=== PATIENT | female | born 1945 | race Caucasian/White ===

== ENCOUNTER → 2020-12-02 14:40 | Outpatient (CLI) | payer MEDICARE, SELFPAY ==
--- NOTE | 2020-12-02 14:42 | US_ITS ---
STUDY: ULTRASOUND BREAST - LEFT REASON FOR EXAM: Female, 75 years old. Abnormal mammogram. TECHNIQUE: Axial and longitudinal images of the LEFT breast were performed with a high resolution ultrasound transducer. # OF IMAGES: 23 COMPARISON: Comparison is made with prior mammogram dated 12/02/2020. FINDINGS: LEFT Breast: The nodular densities in the left axillary region corresponding to benign appearing lymph nodes. The largest measures 9 mm x 8 mm x 5 mm. US/Breast Limited Unilateral IMPRESSION: 3 subcentimeter lymph nodes are seen in the left breast as described. ASSESSMENT CATEGORY: BIRADS Category 2: Benign. A letter regarding these results will be sent to the patient by the facility within 30 days. Electronically Signed: Bob Fenton MD at 8:27 EDT , Service support ,
--- NOTE | 2020-12-02 14:42 | BI_ITS ---
MAMMOGRAPHY - UNILATERAL DIAGNOSTIC: LEFT BREAST REASON FOR EXAM: Female, 75 years old. Abnormal screening mammogram. PERTINENT HISTORY: Non-contributory. Patient received Covid vaccine in the left arm one month ago. TECHNIQUE: Digital unilateral breast camila (3D mammographic acquisition) in the CC and MLO projections. 2-D mediolateral oblique (MLO) and craniocaudad (CC) views of both breasts were obtained. CAD: Full Field Digital Mammography with Computer Added Detection was performed. COMPARISON: Comparison is made with prior outside examination dated 10/19/2020. FINDINGS: Breast Composition: The breasts are almost entirely fatty. There are no dominant masses or suspicious calcifications. Small rounded nodular density is seen in the axillary region of the left breast. These most likely represent lymph nodes. Correlation with ultrasound is recommended. No other significant abnormalities are identified. There has been no significant change since the prior study. BI/DIAG MAMM W/CAD, UNILAT IMPRESSION: Left axillary nodules most likely representing lymph nodes. Correlation with ultrasound is recommended. ASSESSMENT CATEGORY: BIRADS Category 0: Incomplete. Need additional imaging evaluation. A letter regarding these results will be sent to the patient by the facility within 30 days. Approximately 10% of breast cancers are not detected by mammography. A normal mammogram should not delay biopsy of a clinically suspicious abnormality. Electronically Signed: Bob Fenton MD at 15:28 EDT , Service support ,
== END ==
PROVIDERS: PCP Registered Nurse; Referring Provider Registered Nurse; Visit Provider Registered Nurse
DX: R92.8 Other abnormal and inconclusive findings on diagnostic imaging of breast (principal)
CPT/HCPCS: 76642; 77061; 77065; G0279

== ENCOUNTER 2021-01-17 16:41 | Outpatient (RCR) | payer MEDICARE, SELFPAY ==
[2021-01-12 08:20] VITALS: BMI 33.3
[2021-01-17 17:26] LABS: Prealbumin 10.7 mg/dL (20.0-40.0)
== END 2021-01-17 18:00 | disposition home or self-care (01) ==
LOC: HHLAB 16:41
PROVIDERS: PCP Registered Nurse; Visit Provider Nurse Practitioner
DX: E46 Unspecified protein-calorie malnutrition (principal)
CPT/HCPCS: 84134

== ENCOUNTER 2021-01-18 17:15 | Outpatient (RCR) | payer MEDICARE, SELFPAY ==
[2021-01-12 08:20] VITALS: BMI 33.3
[2021-01-18 17:29] LABS: Absolute Lymphocyte Count 2.17 X10^3/uL (0.83-4.51); Absolute Neutrophil Count 5.8 X10^3/uL (2.0-7.7); Basophil# 0.06 X10^3/uL; Basophil% 0.7 % (0-1); Eosinophil# 0.14 X10^3/uL; Eosinophils% 1.6 % (0-5); Hematocrit 29.1 % (37-47); Hemoglobin 9.6 g/dL (12.0-15.0); Lymphocyte # 2.17 X10^3/ul (0.83-4.51); Mean Platelet Vol. 8.6 fl (6.2-12.0); Monocyte% 8.9 % (0-10); NRBC Flagged by Analyzer 0 % (0-5); Neutrophil # 5.84 X10^3/uL (2.7-7.7); Neutrophil % 64.6 % (47-70); Platelet Count 288 K/mm3 (150-450); RBC Distribution Width CV 13.4 % (11.6-14.6); RBC Distribution Width SD 48.9 fl (35.1-43.9); Red Blood Count 2.91 M/mm3 (4.2-5.4)
== END 2021-01-18 18:00 | disposition home or self-care (01) ==
LOC: HHLAB 17:15
PROVIDERS: Visit Provider Nurse Practitioner
DX: R63.4 Abnormal weight loss (principal)
CPT/HCPCS: 85025

== ENCOUNTER 2021-02-02 09:00 | Outpatient (RCR) | payer MEDICARE, SELFPAY ==
[2021-01-12 08:20] VITALS: BP 139/74; PULSE 64; RESP 18; TEMP 36.2; BMI 33.3
--- NOTE | 2021-01-12 11:46 | HP.PCM_ITS ---
History of Present Illness Date of Service: 01/12/21 Chief Complaint: 2 degree ruiz to the abd R and L UPPER LEG History of Wound: Dec 31 2020 dumped 4 C or hot gravy from a crockpot that had been cooking for 8 hrs She went to the ED at [place] and has been using triple antibiotics on it daily .She is allergic to soap and is only using Cetaphil soap. She saw her family DR he wanted to send her to the burn center at [facility] and she refused because of needing a ride . Her friend can bring her to [place]. She lives in [place] and has only been there 1 year and is not aware of her surroundings well .She is from [place], she moved here to be near her son. Progress of Wound: The wound today is full of dried mix of slough and scabs. erythematous around the wounds the worse is the R upper thigh that wraps around her lat upper thigh. She has been not wearing a dressing either and its open to air. She denies F,C,N,V at this time. She does c/o no appetite . [facility] Medical History (Updated 01/12/21 @ 12:19 by Yaima Child NP, DOCUMENT MANAGEMENT SPECIALIST-C) Infected wound Malnutrition Second degree ruiz of multiple sites Home Medications albuterol 0.083 mcg INHALATION Q6H PRN 01/12/21 [History Last Taken Unknown] atorvastatin 40 mg PO DAILY 01/12/21 [History Last Taken Unknown] melatonin 3 mg PO QHS PRN 01/12/21 [History Last Taken Unknown] metoprolol tartrate 100 mg PO BID 01/12/21 [History Last Taken Unknown] multivitamin 1 tab PO DAILY 01/12/21 [History Last Taken Unknown] Allergy/AdvReac Type Severity Reaction Status Date / Time soap Allergy Rash Verified 01/12/21 08:49 Social History Smoking Status: Former smoker ROS Constitutional Constitutional: Reports systems reviewed and no addt'l complaints, except as documented Eyes Eyes: Reports systems reviewed and no addt'l complaints, except as documented ENT HEENT: Reports systems reviewed and no addt'l complaints, except as documented Cardiovascular Cardiovascular: Reports systems reviewed and no addt'l complaints, except as documented Respiratory/Chest Respiratory/Chest: Reports systems reviewed and no addt'l complaints, except as documented Gastrointestinal Gastrointestinal: Reports systems reviewed and no addt'l complaints, except as documented Genitourinary Genitourinary: Reports systems reviewed and no addt'l complaints, except as documented Musculoskeletal Musculoskeletal: Reports systems reviewed and no addt'l complaints, except as documented Integumentary Integumentary: Reports systems reviewed and no addt'l complaints, except as docu mented Neurologic Neurologic: Reports systems reviewed and no addt'l complaints, except as documented Psychiatric Psychiatric: Reports systems reviewed and no addt'l complaints, except as documented Endocrine Endocrinology: Reports systems reviewed and no addt'l complaints, except as documented Hematologic/Lymphatic Hematologic/Lymphatic: Reports systems reviewed and no addt'l complaints, except as documented Allergic/Immunologic Allergic/Immunologic: Reports systems reviewed and no addt'l complaints, except as documented Vital Signs Vital Signs Vital Signs: 01/12/21 08:20 Temperature 97.2 F L Temperature Source Temporal Pulse Rate 64 Respiratory Rate 18 Blood Pressure 139/74 H Blood Pressure Mean 95 Blood Pressure Source Monitor Blood Pressure Position Sitting Blood Pressure Location Right Arm Oxygen Delivery Method Room Air Weight Weight: 194 lb Body Mass Index (BMI) 33.3 Physical Exam Const oriented x3 General Appearance: cooperative Exam Limitations: no limitations HEENT normocephalic Head and Scalp: normal to inspection Face and Sinus: normal facial exam Nose: external nose normal General Ear: hearing grossly impaired External Ear: external ears normal Mouth: oral and palatal mucosa normal Eyes PERRL General Eye: normal appearance of both eyes Neck full ROM General: normal visual inspection Resp normal respiratory effort Effort and Inspection: able to speak in complete sentences Auscultation: clear to auscultation bilaterally Cardio regular rate and regular rhythm Palpation: normal PMI Rate: regular rate Rhythm: regular rhythm GI Auscultation: normoactive bowel sounds Palpation: soft and no hepatosplenomegaly external exam normal Back/Spine Cervical Spine: cervical ROM normal Thoracic Spine / Upper Back: normal to inspection Lumbar Spine / Lower Back: normal to inspection Extremity normal to inspection General Extremity: normal exam except as noted Skin Skin Narrative: 2nd degree ruiz to the upper thighs and abd scabbed and dried slough erythema at the edges Neuro oriented x3 Psych Appearance: grossly normal Speech: normal speech Thought Content: normal thought content Judgement: judgement good Debridement Note Debridement Note Post-Debridement Measurements and Additional Note: Post-Debridement Measurements/Treatment FRIDA - Nurse 1 - General Ulcer Assessment Start: 01/12/21 08:17 Freq: Status: Active Protocol: PAM Activity Type Activity Date Activity User E-Sign Co-Sign Detail Recorded Client Recorded Date Recorded By Document 01/12/21 08:20 [facility] [id number] 01/12/21 08:47 [facility] 01/12/21 08:20 - Today's Visit Information Type of service Initial Visit Arrival Mode Cane,Wheelchair Transfer Assistance Manual Transfer Assist (Other) 2 min assist Patient Identification Verified (Name & Yes ) Patient Requires Transmission-Based No Precautions Height and Weight Height 5 ft 4 in Weight 194 lb Weight in Pounds 194.0 lbs Weight Measurement Method Stated by Patient Body Mass Index (BMI) 33.3 BMI Classification Obese BSA - Melchor 1.93 Vital Signs Temperature (97.8 F-99.1 F) 97.2 F L Temperature Source Temporal Pulse Rate (60-100) 64 Pulse Location Monitor Respiratory Rate (12-18) 18 Respiratory rate source Observation Oxygen Delivery Method Room Air Blood Pressure (90/60-120/80) 139/74 H Blood Pressure Mean 95 Source Monitor Position Sitting Blood Pressure Location Right Arm History Since Last Visit- (Skip if this is Patient's initial visit) Left Footwear Regular Shoe Right Footwear Regular Shoe Pain Scale: 0-10 Numeric Is Patient Pain Free? Yes Communication Assessment Preferred language Frisian Chemical Tester Required No Able to Read Yes Able to Write Yes Communication Tools None Right Hearing Abillity Normal Left Hearing Abillity Normal Visual Assistive Devices None Teaching Assessment Preferences Verbal,Written, Audio/Visual, Demonstration Barriers to Learning None Readiness To Learn Excellent Willingness to Engage in Self Management High Activies Readiness to Engage in Self Management High Activities Anxiety Level Calm Cooperation Cooperative Perception Coherent Interest in Health Problem Asks Questions Education Importance Acknowledges Need Does Patient Smoke tobacco or other No substances Smoking Status Former smoker Is Patient Diabetic No Functional Assessment Recent Decline in Ability to Perform Ambulation, Bathing,Lower Body Dressing, Toileting Culture/Moravian/Professor Of Business Cultural/Moravian Needs that may affect No Treatment Plan Teaching: Wound Center Welcome to the Wound Care Center English GALICIA - Nurse 1 - General Ulcer Measurement Start: 01/12/21 08:17 Freq: Status: Active Protocol: Activity Type Activity Date Activity User E-Sign Co-Sign Detail Recorded Client Recorded Date Recorded By Document 01/12/21 08:20 [facility] [id number] 01/12/21 08:47 [facility] 01/12/21 08:20 Wound Center Nurse 1 #5- L MID ABDOMEN BURN -Combined with other wound No -Current Size (cm) - Length 8 -Current Size (cm) - Width 6 -Current Size (cm) - Depth 0.1 -Total Square Cm 48 -Date of Last Picture (Recall this 01/12/21 field) -Photo Taken Yes -Epithelialization None Present -Tunneling No -Undermining/Tunneling No -Circular Undermining No -Exudate Amt Large -Exudate Type Serosanguineous -Wound Margin Distinct, Outline Attached -Granulation Amt Small (1-33%) -Granulation Quality Red -Slough/Fibrin Yes -Necrosis Amt Large (67-100%) -Necrotic Tissue Type Eschar -Texture (Tatiana-wound Skin Appearance) Assessed, Scarring -Moisture (Tatiana-wound Skin Appearance) Assessed -Color (Tatiana-wound Skin Appearance) Assessed, Erythema -Temperature (Tatiana-wound Skin No Abnormality Appearance) (Pt Warm) -Tenderness on Palpation (Tatiana-wound Yes Skin Appearance) -Ulcer Cleansing WATER, ALLERGY TO SOAP -Foul Odor after Cleansing No -Anesthetic Used 4% Lidocaine Solution #4- R LAT ABDOMEN BURN -Combined with other wound No -Current Size (cm) - Length 3.7 -Current Size (cm) - Width 3.2 -Current Size (cm) - Depth 0.1 -Total Square Cm 11.84 -Date of Last Picture (Recall this 01/12/21 field) -Photo Taken No -Epithelialization None Present -Tunneling No -Undermining/Tunneling No -Circular Undermining No -Exudate Amt Large -Exudate Type Serosanguineous -Wound Margin Distinct, Outline Attached -Granulation Amt Small (1-33%) -Granulation Quality Red -Slough/Fibrin Yes -Necrosis Amt Large (67-100%) -Necrotic Tissue Type Eschar -Texture (Tatiana-wound Skin Appearance) Assessed, Scarring -Moisture (Tatiana-wound Skin Appearance) Assessed -Color (Tatiana-wound Skin Appearance) Assessed -Temperature (Tatiana-wound Skin No Abnormality Appearance) (Pt Warm) -Tenderness on Palpation (Tatiana-wound Yes Skin Appearance) -Ulcer Cleansing WATER, ALLERGY TO SOAP -Foul Odor after Cleansing No -Anesthetic Used 4% Lidocaine Solution #3- R LAT THIGH BURN -Combined with other wound No -Current Size (cm) - Length 20 -Current Size (cm) - Width 22 -Current Size (cm) - Depth 0.1 -Total Square Cm 440 -Date of Last Picture (Recall this 01/12/21 field) -Photo Taken Yes -Epithelialization None Present -Tunneling No -Undermining/Tunneling No -Circular Undermining No -Exudate Amt Large -Exudate Type Serosanguineous -Wound Margin Distinct, Outline Attached -Granulation Amt Small (1-33%) -Granulation Quality Red -Slough/Fibrin Yes -Necrosis Amt Large (67-100%) -Necrotic Tissue Type Eschar -Texture (Tatiana-wound Skin Appearance) Assessed, Scarring -Moisture (Tatiana-wound Skin Appearance) Assessed -Color (Tatiana-wound Skin Appearance) Assessed, Erythema -Temperature (Tatiana-wound Skin No Abnormality Appearance) (Pt Warm) -Tenderness on Palpation (Tatiana-wound Yes Skin Appearance) -Ulcer Cleansing WATER- ALLERGY TO SOAP -Foul Odor after Cleansing No -Anesthetic Used 4% Lidocaine Solution #2- R MED THIGH BURN -Combined with other wound No -Current Size (cm) - Length 6 -Current Size (cm) - Width 10.5 -Current Size (cm) - Depth 0.1 -Total Square Cm 63.0 -Date of Last Picture (Recall this 01/12/21 field) -Photo Taken Yes -Epithelialization None Present -Tunneling No -Undermining/Tunneling No -Circular Undermining No -Exudate Amt Large -Exudate Type Serosanguineous -Wound Margin Distinct, Outline Attached -Granulation Amt Small (1-33%) -Granulation Quality Red -Slough/Fibrin Yes -Necrosis Amt Large (67-100%) -Necrotic Tissue Type Eschar -Texture (Tatiana-wound Skin Appearance) Assessed, Scarring -Moisture (Tatiana-wound Skin Appearance) Assessed -Color (Tatiana-wound Skin Appearance) Assessed, Erythema -Temperature (Tatiana-wound Skin No Abnormality Appearance) (Pt Warm) -Tenderness on Palpation (Tatiana-wound Yes Skin Appearance) -Ulcer Cleansing WATER, ALLERGIC TO SOAP -Foul Odor after Cleansing No -Anesthetic Used 4% Lidocaine Solution #1- L MED THIGH BURN -Combined with other wound No -Current Size (cm) - Length 6 -Current Size (cm) - Width 15 -Current Size (cm) - Depth 0.1 -Total Square Cm 90 -Date of Last Picture (Recall this 01/12/21 field) -Photo Taken Yes -Epithelialization None Present -Tunneling No -Undermining/Tunneling No -Circular Undermining No -Exudate Amt Large -Exudate Type Serosanguineous -Wound Margin Distinct, Outline Attached -Granulation Amt Small (1-33%) -Granulation Quality Red -Slough/Fibrin Yes -Necrosis Amt Large (67-100%) -Necrotic Tissue Type Eschar -Texture (Attiana-wound Skin Appearance) Assessed, Scarring -Moisture (Tatiana-wound Skin Appearance) Assessed -Color (Tatiana-wound Skin Appearance) Assessed, Erythema -Temperature (Tatiana-wound Skin No Abnormality Appearance) (Pt Warm) -Tenderness on Palpation (Tatiana-wound Yes Skin Appearance) -Ulcer Cleansing WATER ONLY, ALLERGIC TO SOAP -Foul Odor after Cleansing No -Anesthetic Used 4% Lidocaine Solution WC - Nurse 2 - General Ulcer CM Notes Start: 01/12/21 08:17 Freq: Status: Active Protocol: Activity Type Activity Date Activity User E-Sign Co-Sign Detail Recorded Client Recorded Date Recorded By Document 01/12/21 09:11 MW [id number] 01/12/21 09:43 MW 01/12/21 09:11 Wound Center Nurse 2 #5- L MID ABDOMEN BURN -Time 09:14 -Correct Patient Yes -Correct Side, Site, Position Yes -Correct Procedure Yes -Procedure Performed Yes -Type of Procedure Debridement -Clinical Debridement Subcutaneous -Tissue Removed Subcutaneous -Post Debridement (cm) - Length 3.5 -Post Debridement (cm) - Width 9.0 -Post Debridement (cm) - Depth 0.2 -Total Square (Post) (cm) 31.50 -Area of Debridement (cm) - Length 3.5 -Area of Debridement (cm) - Width 9.0 -Total Square (Area) (cm) 31.50 -Tunneling No -Undermining/Tunneling No -Circular Undermining No -Wound/Ulcer Outcome Not Healed -Ulcer Cleansing Rinsed/ Irrigated with Saline -Foul Odor after Cleansing No -Bioengineered Tissue No -Bleeding Controlled with Pressure -Offloading No -Treatment Response Procedure Tolerated Well -Debridement - Subq, 1st 20sq cm Yes -Debridement, SubQ, ea addt'l 20sq cm 38 or part thereof #4- R LAT ABDOMEN BURN -Time 09:14 -Correct Patient Yes -Correct Side, Site, Position Yes -Correct Procedure Yes -Procedure Performed Yes -Type of Procedure Debridement -Clinical Debridement Subcutaneous -Tissue Removed Subcutaneous -Post Debridement (cm) - Length 4.0 -Post Debridement (cm) - Width 4.0 -Post Debridement (cm) - Depth 0.1 -Total Square (Post) (cm) 16.00 -Area of Debridement (cm) - Length 4.0 -Area of Debridement (cm) - Width 4.0 -Total Square (Area) (cm) 16.00 -Tunneling No -Undermining/Tunneling No -Circular Undermining No -Wound/Ulcer Outcome Not Healed -Ulcer Cleansing Rinsed/ Irrigated with Saline -Foul Odor after Cleansing No -Bioengineered Tissue No -Bleeding Controlled with Pressure -Offloading No -Treatment Response Procedure Tolerated Well -Debridement - Subq, 1st 20sq cm No #3- R LAT THIGH BURN -Time 09:15 -Correct Patient Yes -Correct Side, Site, Position Yes -Correct Procedure Yes -Procedure Performed Yes -Type of Procedure Debridement -Clinical Debridement Subcutaneous -Tissue Removed Subcutaneous -Post Debridement (cm) - Length 23.0 -Post Debridement (cm) - Width 25.0 -Post Debridement (cm) - Depth 0.2 -Total Square (Post) (cm) 575.00 -Area of Debridement (cm) - Length 23.0 -Area of Debridement (cm) - Width 25.0 -Total Square (Area) (cm) 575.00 -Tunneling No -Undermining/Tunneling No -Circular Undermining No -Wound/Ulcer Outcome Not Healed -Ulcer Cleansing Rinsed/ Irrigated with Saline -Foul Odor after Cleansing No -Bioengineered Tissue No -Bleeding Controlled with Pressure -Offloading No -Treatment Response Procedure Tolerated Well -Debridement - Subq, 1st 20sq cm No #2- R MED THIGH BURN -Time 09:15 -Correct Patient Yes -Correct Side, Site, Position Yes -Correct Procedure Yes -Procedure Performed Yes -Type of Procedure Debridement -Clinical Debridement Subcutaneous -Tissue Removed Subcutaneous -Post Debridement (cm) - Length 4.5 -Post Debridement (cm) - Width 11.0 -Post Debridement (cm) - Depth 0.1 -Total Square (Post) (cm) 49.50 -Area of Debridement (cm) - Length 4.5 -Area of Debridement (cm) - Width 11.0 -Total Square (Area) (cm) 49.50 -Tunneling No -Undermining/Tunneling No -Circular Undermining No -Wound/Ulcer Outcome Not Healed -Ulcer Cleansing Rinsed/ Irrigated with Saline -Foul Odor after Cleansing No -Bioengineered Tissue No -Bleeding Controlled with Pressure -Offloading No -Treatment Response Procedure Tolerated Well -Debridement - Subq, 1st 20sq cm No #1- L MED THIGH BURN -Time 09:15 -Correct Patient Yes -Correct Side, Site, Position Yes -Correct Procedure Yes -Procedure Performed Yes -Type of Procedure Debridement -Clinical Debridement Subcutaneous -Tissue Removed Subcutaneous -Post Debridement (cm) - Length 6.0 -Post Debridement (cm) - Width 15.0 -Post Debridement (cm) - Depth 0.1 -Total Square (Post) (cm) 90.00 -Area of Debridement (cm) - Length 6.0 -Area of Debridement (cm) - Width 15.0 -Total Square (Area) (cm) 90.00 -Tunneling No -Undermining/Tunneling No -Circular Undermining No -Wound/Ulcer Outcome Not Healed -Ulcer Cleansing Rinsed/ Irrigated with Saline -Foul Odor after Cleansing No -Bioengineered Tissue No -Bleeding Controlled with Pressure -Offloading No -Treatment Response Procedure Tolerated Well -Debridement - Subq, 1st 20sq cm No -Debridement, SubQ, ea addt'l 20sq cm 4 or part thereof Pain Scale: 0-10 Numeric Is Patient Pain Free? Yes WC - Nurse 3 - General Ulcer D/C NN Start: 01/12/21 08:17 Freq: Status: Active Protocol: Activity Type Activity Date Activity User E-Sign Co-Sign Detail Recorded Client Recorded Date Recorded By Document 01/12/21 09:53 CASSIUS [id number] 01/12/21 09:56 KR Document 01/12/21 10:06 KR [id number] 01/12/21 10:06 KR 01/12/21 01/12/21 09:53 10:06 Wound Care Nurse 3 #5- L MID ABDOMEN BURN -Ulcer Cleansing Rinsed/ Irrigated with Saline -Primary Dressing Applied Aquacel AG 4x4, NonAdherent Contact Layer -Other Dressing ABD -Primary Dressing Covered/Secured with Dry Gauze, Secured with Tape -Aquacel AG 4x4 3 #4- R LAT ABDOMEN BURN -Ulcer Cleansing Rinsed/ Irrigated with Saline -Primary Dressing Applied NonAdherent Contact Layer -Other Dressing ABD -Primary Dressing Covered/Secured with Dry Gauze, Secured with Tape #3- R LAT THIGH BURN -Ulcer Cleansing Rinsed/ Irrigated with Saline -Other Dressing ABD -Primary Dressing Covered/Secured with Dry Gauze, Secured with Tape #2- R MED THIGH BURN -Ulcer Cleansing Rinsed/ Irrigated with Saline -Primary Dressing Applied Aquacel Extra, NonAdherent Contact Layer -Other Dressing ABD -Primary Dressing Covered/Secured with Dry Gauze, Secured with Tape -Aquacel Extra 2 #1- L MED THIGH BURN -Other Dressing ABD -Primary Dressing Covered/Secured with Dry Gauze, Secured with Tape Pain Scale: 0-10 Numeric Is Patient Pain Free? Yes WC - Visit Discharge Ambulatory Status Cane,Wheelchair Transportation Private Auto Wound debrided: Left mid abdominal wound Laterality: Left Type of Debridement: Excisional debridement Anesthesia Used: 5% Lidocaine Gel and Cetacaine Depth: Down to and including healthy tissue and in the subcutaneous layer Percentage of wound debrided: 100 Instrument Used: 7mm curette, #15 blade and Forceps Tissue Removed: Slough Devitalized tissue Severity: Limited To Skin Breakdown Amount of bleeding with debridement: None Bleeding Controlled with: Pressure Patient tolerated procedure: Patient tolerated procedure well Additional Wound Wound debrided: L mid thigh wound Laterality: Left Type of Debridement: Excisional debridement Anesthesia Used: 5% Lidocaine Gel Depth: Down to and including healthy tissue Percentage of wound debrided: 100 Instrument Used: 7mm curette, #15 blade and Forceps Tissue Removed: devitalized tissue and slough Severity: Limited To Skin Breakdown Amount of bleeding with debridement: Mild Bleeding Controlled with: Pressure Patient tolerated procedure: Patient tolerated procedure well Additional Wound Wound debrided: R lat abd burn Laterality: Right Type of Debridement: Excisional debridement Anesthesia Used: 5% Lidocaine Gel Depth: Down to and including healthy tissue Percentage of wound debrided: 100 Instrument Used: 7mm curette, #15 blade and Forceps Tissue Removed: devitalized tissue and slough Severity: Limited To Skin Breakdown Amount of bleeding with debridement: Mild Bleeding Controlled with: Compression and gauze Patient tolerated procedure: Patient tolerated procedure well Additional Wound Wound debrided: Right lat thigh burn Laterality: Right Type of Debridement: Excisional debridement Anesthesia Used: 5% Lidocaine Gel Depth: Down to and including healthy tissue Percentage of wound debrided: 100 Instrument Used: 7mm curette and #15 blade Tissue Removed: devitalized tissue and slough Severity: Limited To Skin Breakdown Amount of bleeding with debridement: Mild Bleeding Controlled with: Compression and gauze Patient tolerated procedure: Patient tolerated procedure well Additional Wound Wound debrided: R medial thigh Laterality: Right Type of Debridement: Excisional debridement Anesthesia Used: 5% Lidocaine Gel Depth: Down to and including healthy tissue Percentage of wound debrided: 100 Instrument Used: 7mm curette Tissue Removed: devialtized tissue and slough Severity: Limited To Skin Breakdown Amount of bleeding with debridement: Mild Bleeding Controlled with: Compression and gauze Patient tolerated procedure: Patient tolerated procedure well Assessment/Plan Assessment/Plan (1) Second degree ruiz of multiple sites: CODE(S): T30.0 - Burn of unspecified body region, unspecified degree PLAN: wash the wounds with Hibiclens daily and or every other day apply Aquacel Xtra with silver to the wounds cover with adaptic and gauze dressings then mesh covering to hold in place (2) Infected wound: CODE(S): T14.8XXA - Other injury of unspecified body region, initial encounter; L08.9 - Local infection of the skin and subcutaneous tissue, unspecified PLAN: obtained aerobic and anaerobic cultures will call with results and antibiotics if needed (3) Malnutrition: CODE(S): E46 - Unspecified protein-calorie malnutrition QUALIFIERS: Malnutrition type: protein-calorie malnutrition Protein-calorie malnutrition severity: moderate Qualified Code(s): E44.0 - Moderate protein-calorie malnutrition PLAN: lab test for cbc and prealbumin pending
[2021-01-19 08:33] VITALS: BMI 33.3
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
[2021-01-26 09:08] VITALS: BP 125/56; PULSE 76; TEMP 36.1; BMI 33.3
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
[2021-02-02 09:09] VITALS: BP 89/34; PULSE 82; TEMP 35.7; BMI 33.3
[2021-02-02 09:26] VITALS: BP 125/67; BMI 33.3
--- NOTE | 2021-02-02 10:18 | PCM.WC.PN ---
History of Present Illness Date of Service: 02/02/21 Chief Complaint: 2 degree ruiz to the abd R and L UPPER LEG History of Wound: Dec 31 2020 dumped 4 C or hot gravy from a crockpot that had been cooking for 8 hrs She went to the ED at [place] and has been using triple antibiotics on it daily .She is allergic to soap and is only using Cetaphil soap. She saw her family DR he wanted to send her to the burn center at [facility] and she refused because of needing a ride . Her friend can bring her to [place]. She lives in [place] and has only been there 1 year and is not aware of her surroundings well .She is from [place], she moved here to be near her son. Progress of Wound: The wound today is book cleaner and has more granulating tissue. After last week getting off the last piece of necrotic tissue she is now starting to get a smaller right lateral thigh which is the largest of all the wounds. Left abdomen and right abdomen are the only other to left everything else is healed. She is drinking the 30 g protein shakes daily and receiving Meals on Wheels now. Subjective Subjective Patient complaining of severe constipation and has been digging out stool probably from the protein shakes have slowed her down she usually has loose stools or diarrhea. Suggested a fleets enema to get things rolling and she can also use stool softeners but not on a regular basis if she develops loose or runny stools then she is to slow down on the Colace to every other day. Objective Data Objective Data The wounds are healing quickly they are decreased in size more granulation is occurring she is tolerating the Aquacel extra well. Vital Signs: Vital Signs Temp Pulse Resp BP 96.2 F L 82 18 125/67 H 02/02/21 09:09 02/02/21 09:09 01/12/21 08:20 02/02/21 09:26 Oxygen Delivery Method Room Air Weight: 194 lb Body Mass Index (BMI) 33.3 Lab / Micro Data Micro: Microbiology 01/12/21 09:20 Wound Abcess - Leg, Left Gram Stain - Final 01/12/21 09:20 Wound Abcess - Leg, Left Wound Culture - Final Staphylococcus aureus 01/12/21 09:20 Wound Abcess - Leg, Left Anaerobic Culture - Final No anaerobic bacteria isolated. Physical Exam Const oriented x3 General Appearance: cooperative Exam Limitations: no limitations HEENT normocephalic Head and Scalp: normal to inspection Face and Sinus: normal facial exam Nose: external nose normal General Ear: hearing grossly impaired External Ear: external ears normal Mouth: oral and palatal mucosa normal Eyes PERRL General Eye: normal appearance of both eyes Neck full ROM General: normal visual inspection Resp normal respiratory effort Effort and Inspection: able to speak in complete sentences Auscultation: clear to auscultation bilaterally Cardio regular rate and regular rhythm Palpation: normal PMI Rate: regular rate Rhythm: regular rhythm GI Auscultation: normoactive bowel sounds Palpation: soft and no hepatosplenomegaly external exam normal Back/Spine Cervical Spine: cervical ROM normal Thoracic Spine / Upper Back: normal to inspection Lumbar Spine / Lower Back: normal to inspection Extremity normal to inspection General Extremity: normal exam except as noted Skin no rashes or lesions noted Neuro oriented x3 Psych Appearance: grossly normal Speech: normal speech Thought Content: normal thought content Judgement: judgement good Debridement Note Debridement Note Post-Debridement Measurements and Additional Note: Post-Debridement Measurements/Treatment - Nurse 1 - General Ulcer Assessment Start: 01/12/21 08:17 Freq: Status: Active Protocol: FRIDA.[email or web address] Activity Type Activity Date Activity User E-Sign Co-Sign Detail Recorded Client Recorded Date Recorded By Document 01/12/21 08:20 [facility] [id number] 01/12/21 08:47 [facility] Document 01/19/21 08:33 KR [id number] 01/19/21 08:52 KR Document 01/26/21 09:08 KR [id number] 01/26/21 09:39 KR Document 02/02/21 09:09 KR [id number] 02/02/21 09:21 KR Document 02/02/21 09:26 KR [id number] 02/02/21 09:27 KR 01/12/21 01/19/21 01/26/21 08:20 08:33 09:08 - Today's Visit Information Type of service Initial Visit Follow-up Visit Follow-up Visit (Physician/CERTIFIED ADDICTION COUNSELOR (Physician/CERTIFIED ADDICTION COUNSELOR ) ) Arrival Mode Cane,Wheelchair Wheelchair Cane,Walker Transfer Assistance Manual Transfer Assist (Other) 2 min assist Patient Identification Verified (Name & Yes Yes Yes ) Patient Requires Transmission-Based No Precautions Height and Weight Height 5 ft 4 in Weight 194 lb Weight in Pounds 194.0 lbs Weight Measurement Method Stated by Patient Body Mass Index (BMI) 33.3 33.3 33.3 BMI Classification Obese Obese Obese BSA - Melchor 1.93 Vital Signs Temperature (97.8 F-99.1 F) 97.2 F L 97.0 F L Temperature Source Temporal Temporal Temporal Pulse Rate (60-100) 64 76 Pulse Location Monitor Monitor Monitor Respiratory Rate (12-18) 18 Respiratory rate source Observation Oxygen Delivery Method Room Air Blood Pressure (90/60-120/80) 139/74 H 125/56 H Blood Pressure Mean (mm Hg) 95 79 Source Monitor Monitor Monitor Position Sitting Sitting Sitting Blood Pressure Location Right Arm Right Arm Left Arm Have you changed medications since your No No last visit? Any new allergies or adverse reactions No No Had a fall/change in ADL's that may No No increase risk of falls Signs or symptoms of abuse and/or No No neglect since last visit Have you been in the hospital since your No last visit? Has dressing in place as prescribed Yes Yes Has compression in place as prescribed Yes N/A Has offloadiing in place as prescribed N/A N/A Experienced any changes in pain level or No No management History Since Last Visit- (Skip if this is Patient's initial visit) Left Footwear Regular Shoe Regular Shoe Right Footwear Regular Shoe Regular Shoe Pain Scale: 0-10 Numeric Is Patient Pain Free? Yes Yes Communication Assessment Preferred language Portuguese [employer] Required No Able to Read Yes Able to Write Yes Communication Tools None Right Hearing Abillity Normal Left Hearing Abillity Normal Visual Assistive Devices None Teaching Assessment Preferences Verbal,Written, Audio/Visual, Demonstration Barriers to Learning None Readiness To Learn Excellent Willingness to Engage in Self Management High Activies Readiness to Engage in Self Management High Activities Anxiety Level Calm Cooperation Cooperative Perception Coherent Interest in Health Problem Asks Questions Education Importance Acknowledges Need Does Patient Smoke tobacco or other No substances Smoking Status Former smoker Is Patient Diabetic No Functional Assessment Recent Decline in Ability to Perform Ambulation, Bathing,Lower Body Dressing, Toileting Culture/Oriental Orthodox/Trust Manager Cultural/Oriental Orthodox Needs that may affect No Treatment Plan Teaching: Wound Center Welcome to the Wound Care Center Portuguese 02/02/21 02/02/21 09:09 09:26 WC - Today's Visit Information Type of service Follow-up Visit (Physician/CERTIFIED ADDICTION COUNSELOR ) Arrival Mode Walker Transfer Assistance Transfer Assist (Other) Patient Identification Verified (Name & Yes ) Patient Requires Transmission-Based Precautions Height and Weight Height Weight Weight in Pounds Weight Measurement Method Body Mass Index (BMI) 33.3 33.3 BMI Classification Obese Obese BSA - Melchor Vital Signs Temperature (97.8 F-99.1 F) 96.2 F L Temperature Source Temporal Pulse Rate (60-100) 82 Pulse Location Monitor Respiratory Rate (12-18) Respiratory rate source Oxygen Delivery Method Blood Pressure (90/60-120/80) 89/34 L 125/67 H Blood Pressure Mean (mm Hg) 52 86 Source Monitor Monitor Position Sitting Sitting Blood Pressure Location Left Arm Right Arm Have you changed medications since your No last visit? Any new allergies or adverse reactions No Had a fall/change in ADL's that may No increase risk of falls Signs or symptoms of abuse and/or No neglect since last visit Have you been in the hospital since your No last visit? Has dressing in place as prescribed Yes Has compression in place as prescribed N/A Has offloadiing in place as prescribed N/A Experienced any changes in pain level or No management History Since Last Visit- (Skip if this is Patient's initial visit) Left Footwear Regular Shoe Right Footwear Regular Shoe Pain Scale: 0-10 Numeric Is Patient Pain Free? Yes Communication Assessment Preferred languages and literature instructor Required Able to Read Able to Write Communication Tools Right Hearing Abillity Left Hearing Abillity Visual Assistive Devices Teaching Assessment Preferences Barriers to Learning Readiness To Learn Willingness to Engage in Self Management Activies Readiness to Engage in Self Management Activities Anxiety Level Cooperation Perception Interest in Health Problem Education Importance Does Patient Smoke tobacco or other substances Smoking Status Is Patient Diabetic Functional Assessment Recent Decline in Ability to Perform Culture/Oriental Orthodox/Trust Manager Cultural/Oriental Orthodox Needs that may affect Treatment Plan Teaching: Wound Center Welcome to the Wound Care Center WC - Nurse 1 - General Ulcer Measurement Start: 01/12/21 08:17 Freq: Status: Active Protocol: Activity Type Activity Date Activity User E-Sign Co-Sign Detail Recorded Client Recorded Date Recorded By Document 01/12/21 08:20 [facility] [id number] 01/12/21 08:47 [facility] Document 01/19/21 08:33 KR [id number] 01/19/21 08:52 KR Document 01/26/21 09:08 KR [id number] 01/26/21 09:39 KR Document 02/02/21 09:09 KR [id number] 02/02/21 09:21 KR 01/12/21 01/19/21 01/26/21 08:20 08:33 09:08 Wound Center Nurse 1 #5- L MID ABDOMEN BURN -Combined with other wound No -Current Size (cm) - Length 8 7.5 3.1 -Current Size (cm) - Width 6 4.5 7.6 -Current Size (cm) - Depth 0.1 0.1 0.1 -Total Square Cm 48 33.75 23.56 -Date of Last Picture (Recall this 01/12/21 field) -Photo Taken Yes -Epithelialization None Present -Tunneling No -Undermining/Tunneling No -Circular Undermining No -Exudate Amt Large Medium Medium -Exudate Type Serosanguineous Serosanguineous Serosanguineous -Wound Margin Distinct, Distinct, Distinct, Outline Outline Outline Attached Attached Attached -Granulation Amt Small (1-33%) Medium (34-66%) -Granulation Quality Red Red -Slough/Fibrin Yes -Necrosis Amt Large (67-100%) Large (67-100%) None Present (0 %) -Necrotic Tissue Type Eschar Adherent Slough -Texture (Tatiana-wound Skin Appearance) Assessed, Assessed, Assessed, Scarring Scarring Scarring -Moisture (Tatiana-wound Skin Appearance) Assessed No Abnormality, No Abnormality, Assessed Assessed -Color (Tatiana-wound Skin Appearance) Assessed, No Abnormality, No Abnormality, Erythema Assessed Assessed -Temperature (Tatiana-wound Skin No Abnormality No Abnormality No Abnormality Appearance) (Pt Warm) (Pt Warm) (Pt Warm) -Tenderness on Palpation (Tatiana-wound Yes No No Skin Appearance) -Ulcer Cleansing WATER, ALLERGY Rinsed/ Rinsed/ TO SOAP Irrigated with Irrigated with Saline Saline -Foul Odor after Cleansing No No No -Anesthetic Used 4% Lidocaine 4% Lidocaine 5% Lidocaine Solution Solution Gel #4- R LAT ABDOMEN BURN -Combined with other wound No -Current Size (cm) - Length 3.7 3.6 3.2 -Current Size (cm) - Width 3.2 2.9 2.3 -Current Size (cm) - Depth 0.1 0.1 0.1 -Total Square Cm 11.84 10.44 7.36 -Date of Last Picture (Recall this 01/12/21 field) -Photo Taken No -Epithelialization None Present -Tunneling No -Undermining/Tunneling No -Circular Undermining No -Exudate Amt Large Medium -Exudate Type Serosanguineous Serosanguineous -Wound Margin Distinct, Distinct, Distinct, Outline Outline Outline Attached Attached Attached -Granulation Amt Small (1-33%) Medium (34-66%) Medium (34-66%) -Granulation Quality Red Red Red -Slough/Fibrin Yes -Necrosis Amt Large (67-100%) Medium (34-66%) None Present (0 %) -Necrotic Tissue Type Eschar Adherent Slough -Texture (Tatiana-wound Skin Appearance) Assessed, Assessed, Assessed, Scarring Scarring Scarring -Moisture (Tatiaan-wound Skin Appearance) Assessed No Abnormality, No Abnormality, Assessed Assessed -Color (Tatiana-wound Skin Appearance) Assessed No Abnormality, No Abnormality, Assessed Assessed -Temperature (Tatiana-wound Skin No Abnormality No Abnormality No Abnormality Appearance) (Pt Warm) (Pt Warm) (Pt Warm) -Tenderness on Palpation (Tatiana-wound Yes No No Skin Appearance) -Ulcer Cleansing WATER, ALLERGY Rinsed/ Rinsed/ TO SOAP Irrigated with Irrigated with Saline Saline -Foul Odor after Cleansing No No No -Anesthetic Used 4% Lidocaine 4% Lidocaine 4% Lidocaine Solution Solution Solution #3- R LAT THIGH BURN -Combined with other wound No -Current Size (cm) - Length 20 20.4 18.1 -Current Size (cm) - Width 22 20 25 -Current Size (cm) - Depth 0.1 0.1 0.1 -Total Square Cm 440 408.0 452.5 -Date of Last Picture (Recall this 01/12/21 field) -Photo Taken Yes -Epithelialization None Present -Tunneling No -Undermining/Tunneling No -Circular Undermining No -Exudate Amt Large Medium Large -Exudate Type Serosanguineous Serosanguineous Serosanguineous -Wound Margin Distinct, Distinct, Distinct, Outline Outline Outline Attached Attached Attached -Granulation Amt Small (1-33%) Medium (34-66%) Large (67-100%) -Granulation Quality Red Red Red -Slough/Fibrin Yes -Necrosis Amt Large (67-100%) Medium (34-66%) None Present (0 %) -Necrotic Tissue Type Eschar Adherent Slough -Texture (Tatiana-wound Skin Appearance) Assessed, Assessed, Assessed, Scarring Scarring Scarring -Moisture (Tatiana-wound Skin Appearance) Assessed No Abnormality, No Abnormality, Assessed Assessed -Color (Tatiana-wound Skin Appearance) Assessed, No Abnormality, No Abnormality, Erythema Assessed Assessed -Temperature (Tatiana-wound Skin No Abnormality No Abnormality No Abnormality Appearance) (Pt Warm) (Pt Warm) (Pt Warm) -Tenderness on Palpation (Tatiana-wound Yes No No Skin Appearance) -Ulcer Cleansing WATER- ALLERGY Rinsed/ Rinsed/ TO SOAP Irrigated with Irrigated with Saline Saline -Foul Odor after Cleansing No No No -Anesthetic Used 4% Lidocaine 4% Lidocaine 4% Lidocaine Solution Solution Solution #2- R MED THIGH BURN -Combined with other wound No -Current Size (cm) - Length 6 8.2 6.5 -Current Size (cm) - Width 10.5 2.5 1.7 -Current Size (cm) - Depth 0.1 0.1 0.1 -Total Square Cm 63.0 20.50 11.05 -Date of Last Picture (Recall this 01/12/21 field) -Photo Taken Yes -Epithelialization None Present -Tunneling No -Undermining/Tunneling No -Circular Undermining No -Exudate Amt Large Medium Medium -Exudate Type Serosanguineous Serosanguineous Serosanguineous -Wound Margin Distinct, Distinct, Distinct, Outline Outline Outline Attached Attached Attached -Granulation Amt Small (1-33%) Medium (34-66%) Medium (34-66%) -Granulation Quality Red Red Red -Slough/Fibrin Yes -Necrosis Amt Large (67-100%) Medium (34-66%) None Present (0 %) -Necrotic Tissue Type Eschar Adherent Slough -Texture (Tatiana-wound Skin Appearance) Assessed, Assessed, Assessed, Scarring Scarring Scarring -Moisture (Tatiana-wound Skin Appearance) Assessed No Abnormality, No Abnormality, Assessed Assessed -Color (Tatiana-wound Skin Appearance) Assessed, No Abnormality, No Abnormality, Erythema Assessed Assessed -Temperature (Tatiana-wound Skin No Abnormality No Abnormality No Abnormality Appearance) (Pt Warm) (Pt Warm) (Pt Warm) -Tenderness on Palpation (Tatiana-wound Yes No No Skin Appearance) -Ulcer Cleansing WATER, ALLERGIC Rinsed/ Rinsed/ TO SOAP Irrigated with Irrigated with Saline Saline -Foul Odor after Cleansing No No No -Anesthetic Used 4% Lidocaine 4% Lidocaine 4% Lidocaine Solution Solution Solution #1- L MED THIGH BURN -Combined with other wound No -Current Size (cm) - Length 6 12.5 6.5 -Current Size (cm) - Width 15 2.6 2 -Current Size (cm) - Depth 0.1 0.1 0.1 -Total Square Cm 90 32.50 13.0 -Date of Last Picture (Recall this 01/12/21 field) -Photo Taken Yes -Epithelialization None Present -Tunneling No -Undermining/Tunneling No -Circular Undermining No -Exudate Amt Large Medium Medium -Exudate Type Serosanguineous Serosanguineous Serosanguineous -Wound Margin Distinct, Distinct, Distinct, Outline Outline Outline Attached Attached Attached -Granulation Amt Small (1-33%) Medium (34-66%) Medium (34-66%) -Granulation Quality Red Red Red -Slough/Fibrin Yes -Necrosis Amt Large (67-100%) Medium (34-66%) None Present (0 %) -Necrotic Tissue Type Eschar Adherent Slough -Texture (Tatiana-wound Skin Appearance) Assessed, Assessed, Assessed, Scarring Scarring Scarring -Moisture (Tatiana-wound Skin Appearance) Assessed No Abnormality, No Abnormality, Assessed Assessed -Color (Tatiana-wound Skin Appearance) Assessed, No Abnormality, No Abnormality, Erythema Assessed Assessed -Temperature (Tatiana-wound Skin No Abnormality No Abnormality No Abnormality Appearance) (Pt Warm) (Pt Warm) (Pt Warm) -Tenderness on Palpation (Tatiana-wound Yes No No Skin Appearance) -Ulcer Cleansing WATER ONLY, Rinsed/ Rinsed/ ALLERGIC TO Irrigated with Irrigated with SOAP Saline Saline -Foul Odor after Cleansing No No No -Anesthetic Used 4% Lidocaine 4% Lidocaine 4% Lidocaine Solution Solution Solution 02/02/21 09:09 Wound Center Nurse 1 #5- L MID ABDOMEN BURN -Combined with other wound -Current Size (cm) - Length 6.6 -Current Size (cm) - Width 4.5 -Current Size (cm) - Depth 0.1 -Total Square Cm 29.70 -Date of Last Picture (Recall this field) -Photo Taken -Epithelialization -Tunneling -Undermining/Tunneling -Circular Undermining -Exudate Amt Medium -Exudate Type Serosanguineous -Wound Margin Distinct, Outline Attached -Granulation Amt Small (1-33%) -Granulation Quality Red -Slough/Fibrin -Necrosis Amt Large (67-100%) -Necrotic Tissue Type Adherent Slough -Texture (Tatiana-wound Skin Appearance) Assessed, Scarring -Moisture (Tatiana-wound Skin Appearance) No Abnormality, Assessed -Color (Tatiana-wound Skin Appearance) -Temperature (Tatiana-wound Skin No Abnormality Appearance) (Pt Warm) -Tenderness on Palpation (Tatiana-wound No Skin Appearance) -Ulcer Cleansing Rinsed/ Irrigated with Saline -Foul Odor after Cleansing No -Anesthetic Used 4% Lidocaine Solution #4- R LAT ABDOMEN BURN -Combined with other wound -Current Size (cm) - Length 2 -Current Size (cm) - Width 1 -Current Size (cm) - Depth 0.1 -Total Square Cm 2 -Date of Last Picture (Recall this field) -Photo Taken -Epithelialization -Tunneling -Undermining/Tunneling -Circular Undermining -Exudate Amt Small -Exudate Type Serosanguineous -Wound Margin Distinct, Outline Attached -Granulation Amt Small (1-33%) -Granulation Quality Red -Slough/Fibrin -Necrosis Amt Large (67-100%) -Necrotic Tissue Type Adherent Slough -Texture (Tatiana-wound Skin Appearance) Assessed, Scarring -Moisture (Tatiana-wound Skin Appearance) No Abnormality, Assessed -Color (Tatiana-wound Skin Appearance) No Abnormality, Assessed -Temperature (Tatiana-wound Skin No Abnormality Appearance) (Pt Warm) -Tenderness on Palpation (Tatiana-wound No Skin Appearance) -Ulcer Cleansing Rinsed/ Irrigated with Saline -Foul Odor after Cleansing No -Anesthetic Used 4% Lidocaine Solution #3- R LAT THIGH BURN -Combined with other wound -Current Size (cm) - Length 17.8 -Current Size (cm) - Width 23.3 -Current Size (cm) - Depth 0.1 -Total Square Cm 414.74 -Date of Last Picture (Recall this field) -Photo Taken -Epithelialization -Tunneling -Undermining/Tunneling -Circular Undermining -Exudate Amt Medium -Exudate Type Serosanguineous -Wound Margin Distinct, Outline Attached -Granulation Amt Medium (34-66%) -Granulation Quality Red -Slough/Fibrin -Necrosis Amt Medium (34-66%) -Necrotic Tissue Type Adherent Slough -Texture (Tatiana-wound Skin Appearance) Assessed, Scarring -Moisture (Tatiana-wound Skin Appearance) Assessed, Maceration -Color (Tatiana-wound Skin Appearance) No Abnormality, Assessed -Temperature (Tatiana-wound Skin No Abnormality Appearance) (Pt Warm) -Tenderness on Palpation (Tatiana-wound No Skin Appearance) -Ulcer Cleansing Rinsed/ Irrigated with Saline -Foul Odor after Cleansing No -Anesthetic Used 4% Lidocaine Solution #2- R MED THIGH BURN -Combined with other wound -Current Size (cm) - Length -Current Size (cm) - Width -Current Size (cm) - Depth -Total Square Cm -Date of Last Picture (Recall this field) -Photo Taken -Epithelialization -Tunneling -Undermining/Tunneling -Circular Undermining -Exudate Amt -Exudate Type -Wound Margin -Granulation Amt -Granulation Quality -Slough/Fibrin -Necrosis Amt -Necrotic Tissue Type -Texture (Tatiana-wound Skin Appearance) -Moisture (Tatiana-wound Skin Appearance) -Color (Tatiana-wound Skin Appearance) -Temperature (Tatiana-wound Skin Appearance) -Tenderness on Palpation (Tatiana-wound Skin Appearance) -Ulcer Cleansing -Foul Odor after Cleansing -Anesthetic Used #1- L MED THIGH BURN -Combined with other wound -Current Size (cm) - Length 0.1 -Current Size (cm) - Width 0.1 -Current Size (cm) - Depth 0.1 -Total Square Cm 0.01 -Date of Last Picture (Recall this field) -Photo Taken -Epithelialization -Tunneling -Undermining/Tunneling -Circular Undermining -Exudate Amt -Exudate Type -Wound Margin Distinct, Outline Attached -Granulation Amt -Granulation Quality -Slough/Fibrin -Necrosis Amt -Necrotic Tissue Type -Texture (Tatiana-wound Skin Appearance) -Moisture (Tatiana-wound Skin Appearance) -Color (Tatiana-wound Skin Appearance) -Temperature (Tatiana-wound Skin No Abnormality Appearance) (Pt Warm) -Tenderness on Palpation (Tatiana-wound No Skin Appearance) -Ulcer Cleansing Rinsed/ Irrigated with Saline -Foul Odor after Cleansing No -Anesthetic Used 4% Lidocaine Solution WC - Nurse 2 - General Ulcer CM Notes Start: 01/12/21 08:17 Freq: Status: Active Protocol: Activity Type Activity Date Activity User E-Sign Co-Sign Detail Recorded Client Recorded Date Recorded By Document 06/09/21 09:11 MW [id number] 01/12/21 09:43 MW Edit Result 01/12/21 09:11 MW (1) [id number] 01/13/21 17:26 PL Document 01/19/21 08:57 MW [id number] 01/19/21 09:23 MW Edit Result 01/19/21 08:57 MW (2) [id number] 01/21/21 07:07 PL Document 01/26/21 09:48 MW [id number] 01/26/21 10:05 MW (1) #1- L MED THIGH BURN - Debridement, SubQ, ea addt'l 20sq cm 4 => or part thereof (2) #5- L MID ABDOMEN BURN - Debridement, SubQ, ea addt'l 20sq cm 1 => 30 or part thereof 01/12/21 01/19/21 01/26/21 09:11 08:57 09:48 Wound Center Nurse 2 #5- L MID ABDOMEN BURN -Time 09:14 08:58 09:49 -Correct Patient Yes Yes Yes -Correct Side, Site, Position Yes Yes Yes -Correct Procedure Yes Yes Yes -Procedure Performed Yes Yes Yes -Type of Procedure Debridement Debridement Debridement -Clinical Debridement Subcutaneous Subcutaneous Subcutaneous -Tissue Removed Subcutaneous Subcutaneous Subcutaneous -Post Debridement (cm) - Length 3.5 3.5 3.7 -Post Debridement (cm) - Width 9.0 7.5 7.7 -Post Debridement (cm) - Depth 0.2 0.1 0.1 -Total Square (Post) (cm) 31.50 26.25 28.49 -Area of Debridement (cm) - Length 3.5 3.5 0.7 -Area of Debridement (cm) - Width 9.0 7.5 7.7 -Total Square (Area) (cm) 31.50 26.25 5.39 -Tunneling No No No -Undermining/Tunneling No No No -Circular Undermining No No No -Wound/Ulcer Outcome Not Healed Not Healed Not Healed -Ulcer Cleansing Rinsed/ Rinsed/ Rinsed/ Irrigated with Irrigated with Irrigated with Saline Saline Saline -Foul Odor after Cleansing No No No -Bioengineered Tissue No No No -Bleeding Controlled with Pressure Pressure Pressure -Offloading No No No -Treatment Response Procedure Procedure Procedure Tolerated Well Tolerated Well Tolerated Well -Debridement - Subq, 1st 20sq cm Yes Yes Yes -Debridement, SubQ, ea addt'l 20sq cm 38 30 24 or part thereof #4- R LAT ABDOMEN BURN -Time 09:14 08:58 09:49 -Correct Patient Yes Yes Yes -Correct Side, Site, Position Yes Yes Yes -Correct Procedure Yes Yes Yes -Procedure Performed Yes Yes Yes -Type of Procedure Debridement Debridement Debridement -Clinical Debridement Subcutaneous Subcutaneous Subcutaneous -Tissue Removed Subcutaneous Subcutaneous Subcutaneous -Post Debridement (cm) - Length 4.0 3.5 2.5 -Post Debridement (cm) - Width 4.0 2.5 3.3 -Post Debridement (cm) - Depth 0.1 0.1 0.1 -Total Square (Post) (cm) 16.00 8.75 8.25 -Area of Debridement (cm) - Length 4.0 3.5 2.5 -Area of Debridement (cm) - Width 4.0 2.5 3.3 -Total Square (Area) (cm) 16.00 8.75 8.25 -Tunneling No No No -Undermining/Tunneling No No No -Circular Undermining No No No -Wound/Ulcer Outcome Not Healed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
== END 2021-02-02 23:59 ==
LOC: WC 09:00
PROVIDERS: PCP Registered Nurse; Referring Provider Specialist; Visit Provider Nurse Practitioner
DX: T14.8XXA Other injury of unspecified body region, initial encounter (principal); T24.212D Burn of second degree of left thigh, subsequent encounter; T24.211D Burn of second degree of right thigh, subsequent encounter; T21.22XD Burn of second degree of abdominal wall, subsequent encounter; X10.1XXD Contact with hot food, subsequent encounter; L08.9 Local infection of the skin and subcutaneous tissue, unspecified; Z87.891 Personal history of nicotine dependence; D51.9 Vitamin B12 deficiency anemia, unspecified; R23.4 Changes in skin texture; E44.0 Moderate protein-calorie malnutrition; Z68.33 Body mass index [BMI] 33.0-33.9, adult; K59.00 Constipation, unspecified
CPT/HCPCS: 11042; 11045; 16020; 87070; 87075; 87077; 87186; 87205; 99203; G0463

== ENCOUNTER 2021-02-06 07:31 | Emergency (ER) | payer MEDICARE, SELFPAY ==
[2021-02-04 10:07] VITALS: BMI 33.3
[2021-02-06 07:32] VITALS: BP 139/85; PULSE 62; RESP 12; TEMP 36.8; O2SAT 97; BMI 35.2
[2021-02-06] MEDS: Lidocaine Jelly 2% 20 ML Syringe (URO-JET) 20 APPLIC TOPICAL (07:46)
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
== END 2021-02-06 09:09 | disposition home or self-care (01) ==
PROVIDERS: Emergency Provider Emergency Medicine; PCP Registered Nurse
DX: K59.03 Drug induced constipation (principal); T40.2X5A Adverse effect of other opioids, initial encounter; I10 Essential (primary) hypertension; Z79.899 Other long term (current) drug therapy; Z87.891 Personal history of nicotine dependence
CPT/HCPCS: 99285

== ENCOUNTER 2021-03-02 10:00 | Outpatient (RCR) | payer MEDICARE, SELFPAY ==
[2021-02-03 00:32] VITALS: BP 125/67; PULSE 82; RESP 18; TEMP 35.7
[2021-02-04 10:07] VITALS: BP 82/63; PULSE 80; RESP 18; TEMP 36.4; BMI 33.3
[2021-02-16 08:54] VITALS: BP 156/54; PULSE 59; RESP 16; TEMP 36.1; BMI 33.3
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
[2021-02-23 08:42] VITALS: BP 117/70; PULSE 67; TEMP 35.9; BMI 33.3
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
[2021-03-02 10:12] VITALS: BP 138/71; PULSE 88; TEMP 36; BMI 33.3
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
== END 2021-03-05 23:59 ==
LOC: WC 10:00
PROVIDERS: PCP Registered Nurse; Referring Provider Specialist; Visit Provider Nurse Practitioner
DX: T81.89XA Other complications of procedures, not elsewhere classified, initial encounter (principal); T14.8XXA Other injury of unspecified body region, initial encounter; T24.212D Burn of second degree of left thigh, subsequent encounter; T21.22XD Burn of second degree of abdominal wall, subsequent encounter; T24.211D Burn of second degree of right thigh, subsequent encounter; X10.1XXD Contact with hot food, subsequent encounter; L08.9 Local infection of the skin and subcutaneous tissue, unspecified; T30.0 Burn of unspecified body region, unspecified degree; N39.0 Urinary tract infection, site not specified; K59.00 Constipation, unspecified; E44.0 Moderate protein-calorie malnutrition
CPT/HCPCS: 11042; 11045; 99212; G0463

== ENCOUNTER 2021-03-08 12:46 | Outpatient (RCR) | payer MEDICARE, SELFPAY ==
[2021-03-02 12:17] VITALS: BMI 35.2
[2021-03-08 13:25] LABS: Color, Urine Yellow (Yellow); Glucose, Dipstick Normal (Normal); Ketone-Dipstick Negative (Negative); Leukocyte Esterase-Dipstick 25 /ul (Negative); Nitrite-Dipstick Negative (Negative); Occult Blood-Urine Negative /ul (Negative); Protein-Dipstick Negative (Negative); Specific Gravity, Urine 1.015 (1.002-1.030); Urine Bilirubin Dipstick Negative (Negative); Urine Clarity Clear (Clear); Urine Urobilinogen Normal (Normal)
== END 2021-03-08 18:00 | disposition home or self-care (01) ==
LOC: HHLAB 12:46
PROVIDERS: PCP Registered Nurse; Referring Provider Nurse Practitioner; Visit Provider Nurse Practitioner
DX: R35.0 Frequency of micturition (principal); R32 Unspecified urinary incontinence
CPT/HCPCS: 81002; 87086; 87088

== ENCOUNTER 2021-03-30 08:00 | Outpatient (RCR) | payer MEDICARE, SELFPAY ==
[2021-03-02 12:17] VITALS: BMI 35.2
[2021-03-06 00:32] VITALS: BP 138/71; PULSE 88; RESP 16; TEMP 36
[2021-03-16 08:45] VITALS: BP 122/66; PULSE 70; RESP 18; TEMP 36.7; BMI 35.2
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
[2021-03-23 08:36] VITALS: BP 119/51; PULSE 69; TEMP 36.1; BMI 35.2
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
[2021-03-30 08:05] VITALS: BP 129/92; PULSE 73; TEMP 36.1; BMI 35.2
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
== END 2021-04-05 23:59 ==
LOC: WC 08:00
PROVIDERS: PCP Registered Nurse; Referring Provider Specialist; Visit Provider Nurse Practitioner
DX: T81.89XA Other complications of procedures, not elsewhere classified, initial encounter (principal); T24.212D Burn of second degree of left thigh, subsequent encounter; T24.211D Burn of second degree of right thigh, subsequent encounter; T21.22XD Burn of second degree of abdominal wall, subsequent encounter; L08.9 Local infection of the skin and subcutaneous tissue, unspecified; E44.0 Moderate protein-calorie malnutrition
CPT/HCPCS: 11042; 11045; 16020; 17250

== ENCOUNTER → 2021-05-02 11:58 | Outpatient (CLI) | payer MEDICARE, SELFPAY ==
--- NOTE | 2021-05-02 12:02 | US_ITS ---
STUDY: RENAL ULTRASOUND - COMPLETE REASON FOR EXAM: Female, 75 years old. UTI, incontinence TECHNIQUE: Ultrasound evaluation of the kidneys was performed with real-time and static bullock-scale imaging. COMPARISON: None. FINDINGS: RIGHT KIDNEY: Normal location of the right kidney, which is normal in size. The right kidney measures 13.7 x 5.1 x 5.1 cm. There is diffuse thinning of the renal cortex. The renal cortex measures 0.9 cm. Multiple cysts, the largest measures 3.1 x 3.4 x 3.1 cm. There are no right renal calculi. There is moderate hydronephrosis of the right kidney. DISTAL RIGHT URETER: There is non-visualization of the distal right ureter. There is no demonstrated right ureterovesical junction calculus. There is no demonstrated right ureteral jet. LEFT KIDNEY: Normal location of the left kidney, which is normal in size. The left kidney measures 11.1 x 5.3 x 5.3 cm. There is a normal cortex of the left kidney. The renal cortex measures 1.4 cm. There are multiple cysts, the largest measures 5.8 x 5.5 x 3.5 cm. There are no left renal calculi. There is moderate hydronephrosis of the left kidney. DISTAL LEFT URETER: There is non-visualization of the distal left ureter. There is no demonstrated left ureterovesical junction calculus. There is no demonstrated left ureteral jet. BLADDER: The distended urinary bladder has a volume of 1432 ml. The empty urinary bladder has a volume of 1379 ml. There is a normal wall thickness of the distended urinary bladder. There is no demonstrated mass within the urinary bladder. There are no demonstrated bladder calculi. There appears to be layering hyperdense fluid in the urinary bladder. US/Kidney and Bladder IMPRESSION: Distended urinary bladder with minimal emptying and moderate bilateral hydronephrosis suggests urinary bladder outlet obstruction. Mild right renal cortical thinning. Electronically Signed: Herve Hardy MD at 7:07 EDT Tel , Service support ,
--- NOTE | 2021-05-02 15:18 | NURSING ---
PT FOUND TO HAVE 1300 ML OF URINE IN POST VOID U/S. TELEPHONE ORDER RECEIVED FROM DR. Parrish to insert atkinson catheter. Catheter inserted. Immediate cloudy, straw colored urine return, 1600 ml. Bag emptied and urine transitioned to purulent, pink tinged flow. New brief applied to patient. Assisted into and taken to meet [facility] transportation at the front entrance by this RN. Appt for follow-up scheduleD for tomorrow 05/03 at 3:[address] Parrish. [facility] transportation arranged to pick patient up at 1500. PT aware, verbalized understanding of plan.
== END ==
PROVIDERS: PCP Family Medicine; Referring Provider Urology; Visit Provider Urology
DX: N39.0 Urinary tract infection, site not specified (principal)
CPT/HCPCS: 76770

== ENCOUNTER → 2021-05-03 16:06 | Outpatient (CLI) | payer MEDICARE, SELFPAY ==
[2021-05-03 17:47] LABS: Absolute Lymphocyte Count 3.46 X10^3/uL (0.83-4.51); Absolute Neutrophil Count 8.5 X10^3/uL (2.0-7.7); Basophil# 0.08 X10^3/uL; Basophil% 0.6 % (0-1); Eosinophil# 0.67 X10^3/uL; Eosinophils% 4.9 % (0-5); Hematocrit 30.5 % (37-47); Lymphocyte # 3.46 X10^3/ul (0.83-4.51); Lymphocyte % 25.5 % (19-41); Mean Corp Hgb Conc 32.8 g/dL (32-36); Mean Corpuscular Hgb 28.4 pg (27.0-32.0); Mean Corpuscular Volume 86.6 fL (81-99); Monocyte# 0.85 X10^3/uL; Monocyte% 6.3 % (0-10); NRBC Flagged by Analyzer 0 % (0-5); Neutrophil # 8.47 X10^3/uL (2.7-7.7); Neutrophil % 62.3 % (47-70); Platelet Count 475 K/mm3 (150-450); RBC Distribution Width CV 13.2 % (11.6-14.6); RBC Distribution Width SD 41.9 fl (35.1-43.9); Red Blood Count 3.52 M/mm3 (4.2-5.4); White Blood Count 13.6 K/mm3 (4.4-11.0)
[2021-05-03 18:16] LABS: ALB/GLOB Ratio 0.4 RATIO (0.9-2.4); AST(SGOT) 23 U/L (15-37); Alanine Aminotransfer ALT/SGPT 23 U/L (13-56); Albumin, Serum 2.6 g/dL (3.2-5.0); Alkaline Phosphatase 225 U/L (45-117); Anion Gap 11 (5-15); BUN 30 mg/dL (7-18); BUN/Creat Ratio 24.4 RATIO (10-20); Calcium,Total 9.9 mg/dL (8.5-10.1); Chloride 98 mmol/L (98-107); Creatinine, Serum 1.23 mg/dL (0.55-1.02); EST Glomerular Filtration Rate 45 mL/min (>60); Est Glom Filt Rate - Afr Amer 55 mL/min (>60); Globulin 6.2 g/dL (2.2-4.2); Glucose 110 mg/dL (74-106); Potassium 3.5 mmol/L (3.5-5.1); Protein, Total 8.8 g/dL (6.4-8.2); Sodium Level 130 mmol/L (136-145)
== END ==
PROVIDERS: PCP Registered Nurse; Referring Provider Urology; Visit Provider Urology
DX: N13.30 Unspecified hydronephrosis (principal); N39.0 Urinary tract infection, site not specified; R33.9 Retention of urine, unspecified
CPT/HCPCS: 36415; 80053; 85025

== ENCOUNTER 2021-05-04 09:00 | Outpatient (RCR) | payer MEDICARE, SELFPAY ==
[2021-04-06 00:35] VITALS: BP 129/92; PULSE 73; RESP 18; TEMP 36.1; BMI 35.2
[2021-04-06 09:21] VITALS: BP 141/69; PULSE 70; TEMP 35.9; BMI 35.2
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
[2021-04-20 09:16] VITALS: BP 162/62; PULSE 88; TEMP 36.1; BMI 35.2
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
[2021-04-27 09:11] VITALS: BP 160/70; PULSE 62; RESP 16; TEMP 35.9; BMI 35.2
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
[2021-05-04 09:14] VITALS: BP 146/61; PULSE 59; TEMP 36.4; BMI 35.2
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
== END 2021-05-05 23:59 ==
LOC: WC 09:00
PROVIDERS: PCP Registered Nurse; Referring Provider Specialist; Visit Provider Nurse Practitioner
DX: L97.121 Non-pressure chronic ulcer of left thigh limited to breakdown of skin (principal); T30.0 Burn of unspecified body region, unspecified degree; E44.0 Moderate protein-calorie malnutrition; T14.8XXA Other injury of unspecified body region, initial encounter
CPT/HCPCS: 11042; 16020; 17250; 99213; G0463

== ENCOUNTER → 2021-05-06 08:53 | Outpatient (CLI) | payer MEDICARE, SELFPAY ==
--- NOTE | 2021-05-06 08:56 | BI_ITS ---
MAMMOGRAPHY - UNILATERAL DIAGNOSTIC: LEFT BREAST REASON FOR EXAM: Female, 75 years old. Six-month follow-up for axillary lymph nodes. PERTINENT HISTORY: Non-contributory. TECHNIQUE: Digital unilateral breast camila (3D mammographic acquisition) in the CC and MLO projections. 2-D mediolateral oblique (MLO) and craniocaudad (CC) views of both breasts were obtained. CAD: Full Field Digital Mammography with Computer Added Detection was performed. COMPARISON: Comparison is made with prior study dated 12/02/2020. FINDINGS: Breast Composition: The breasts are almost entirely fatty. Stable secretory calcifications. There are no dominant masses or suspicious calcifications. Stable appearance of the dense left axillary lymph nodes. No other significant abnormalities are identified. BI/DIAG MAMM W/CAD, UNILAT IMPRESSION: Stable unilateral diagnostic mammogram. One year follow-up mammogram recommended. (A) ASSESSMENT CATEGORY: BIRADS Category 2: Benign. A letter regarding these results will be sent to the patient by the facility within 30 days. Approximately 10% of breast cancers are not detected by mammography. A normal mammogram should not delay biopsy of a clinically suspicious abnormality. Electronically Signed: Bob Fenton MD at 11:14 EDT , Service support ,
== END ==
PROVIDERS: PCP Registered Nurse; Referring Provider Family Medicine; Visit Provider Family Medicine
DX: R92.8 Other abnormal and inconclusive findings on diagnostic imaging of breast (principal)
CPT/HCPCS: 77061; 77065; G0279

== ENCOUNTER → 2021-05-12 15:39 | Outpatient (CLI) | payer MEDICARE, SELFPAY ==
--- NOTE | 2021-05-12 16:10 | CT_ITS ---
HISTORY: Bilateral hydronephrosis, urinary retention, UTI EXAMINATION: CT Abdomen And Pelvis WO/W Contrast Injection TECHNIQUE: Helically acquired images were obtained of the abdomen and pelvis before and following IV contrast, with portal venous phase and 5 minute delayed images. A radiation dose optimization technique was used for this scan. IV Contrast dosage and agent: 100mL Isovue-370 Oral contrast: None. COMPARISON: Renal ultrasound from 05/02/21 FINDINGS: LOWER CHEST: Moderate-sized left pleural effusion with rounded opacification and partial volume loss left lower lobe and mild rounded pleural based opacity lateral lingular segment left upper lobe. Normal size heart with coronary arterial calcifications. LIVER: Nodular liver contour compatible cirrhosis. No discrete mass. Punctate granulomatous calcification along dome of liver. GALLBLADDER AND BILIARY TREE: Tiny calcified stone within contracted gallbladder lumen. No significant biliary ductal dilation. KIDNEYS AND URETERS: No tract stones identified. No significant hydroureteronephrosis. Numerous bilateral low-attenuation, simple-appearing renal cysts, largest at left lower pole measures up to 5.5 cm diameter. ADRENAL GLANDS: Non-enlarged. SPLEEN: Normal size without discrete mass. PANCREAS: No discrete mass or peripancreatic inflammation. BOWEL: Normal appendix medial to cecum within right lower quadrant. No abnormal stomach or bowel distension. Scattered colonic diverticula. No focal inflammatory change observed. LYMPH NODES: No enlarged mesenteric or retroperitoneal lymph nodes. PERITONEUM: No free air or significant free fluid. No other fluid collection. VESSELS: Prominent atherosclerotic disease with no abdominal aortic aneurysm or dissection. URINARY BLADDER: Langston catheter and gas within empty urinary bladder lumen. Bladder wall appears mildly thickened with trace perivesical edema. REPRODUCTIVE ORGANS: Small 2 cm right adnexal cyst with small peripheral rim calcifications. ABDOMINAL WALL: No acute findings or significant hernia defect. BONES: Skeletal degenerative changes. Mild chronic appearing endplate compression deformities at L1 and L2. CT/CT Abd/Pelvis W/WO Contrast IMPRESSION: 1. Findings and clinical history suggesting cystitis. There is no obstructive uropathy. 2. Moderate-sized left pleural effusion with probable chronic rounded atelectasis left lower lung. Pulmonary mass/neoplasm would be difficult to exclude in this setting. Correlate clinically and suggest follow-up imaging in 3-6 months to reassess. Also consider correlation with PET/CT. 3. Bilateral simple appearing renal cysts. No follow-up recommended at this time. 4. Cholelithiasis. 5. Cirrhotic liver morphology with no ascites or splenomegaly. 6. Colonic diverticulosis with no evidence of diverticulitis. 7. Other nonurgent findings within body of report. Individualized dose optimization techniques were used for this CT. at 0017 Reported and signed by: Luis Saravia MD Electronically Signed: Luis Saravia MD at 0:16 EDT Tel , Service support ,
== END ==
PROVIDERS: PCP Family Medicine; Referring Provider Urology; Visit Provider Urology
DX: N13.30 Unspecified hydronephrosis (principal); N39.0 Urinary tract infection, site not specified; R33.9 Retention of urine, unspecified
CPT/HCPCS: 74178; Q9967

== ENCOUNTER 2021-06-01 10:00 | Outpatient (RCR) | payer MEDICARE, SELFPAY ==
[2021-05-06 00:28] VITALS: BP 146/61; PULSE 59; RESP 16; TEMP 36.4; BMI 35.2
[2021-05-11 10:06] VITALS: BP 142/64; PULSE 75; TEMP 36; BMI 35.2
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
[2021-05-18 10:53] VITALS: BP 134/71; PULSE 71; TEMP 35.8; BMI 35.2
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
[2021-06-01 09:55] VITALS: BP 152/59; PULSE 76; TEMP 36.3; BMI 35.2
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
== END 2021-06-05 23:59 ==
LOC: WC 10:00
PROVIDERS: PCP Registered Nurse; Referring Provider Specialist; Visit Provider Nurse Practitioner
DX: L97.121 Non-pressure chronic ulcer of left thigh limited to breakdown of skin (principal); T30.0 Burn of unspecified body region, unspecified degree; E44.0 Moderate protein-calorie malnutrition
CPT/HCPCS: 11042; 11045; 16020; 17250; 97597; 97598; 99213; G0463

== ENCOUNTER 2021-06-22 08:00 | Outpatient (RCR) | payer MEDICARE, SELFPAY ==
[2021-06-06 00:23] VITALS: BP 152/59; PULSE 76; RESP 16; TEMP 36.3; BMI 35.2
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
[2021-06-08 10:38] VITALS: BP 132/91; PULSE 70; TEMP 36.1; BMI 35.2
[2021-06-22 08:11] VITALS: RESP 16; TEMP 35.5; BMI 35.2
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
== END 2021-06-22 11:12 | disposition home or self-care (01) ==
LOC: WC 08:00
PROVIDERS: PCP Registered Nurse; Referring Provider Specialist; Visit Provider Nurse Practitioner
DX: L97.121 Non-pressure chronic ulcer of left thigh limited to breakdown of skin (principal); T30.0 Burn of unspecified body region, unspecified degree; T14.8XXA Other injury of unspecified body region, initial encounter; E44.0 Moderate protein-calorie malnutrition
CPT/HCPCS: 17250; 99213; G0463

== ENCOUNTER 2021-09-19 09:49 | Day surgery (SDC) | payer MEDICARE, SELFPAY ==
[2021-09-19] MEDS: Vancomycin IV 1,000 MG/200 ML BAG 200 MG IV (07:00)
[2021-09-19 10:34] VITALS: BP 150/68; PULSE 58; RESP 18; TEMP 36.2; O2SAT 100; BMI 31.0
--- NOTE | 2021-09-19 11:02 | PCM.DC ---
Discharge Instructions Diet Discharge Diet: No restrictions Activity Discharge Activity: May Not Shower Additional Activity Instructions:: Limit bending, stretching, etc. Dressing / Incision Call your doctor if your incision/area has: Continuous Slow Oozing, Sudden Increased Bleeding, Increased Pain/ Swelling, Increased Redness, Foul Smelling Discharge and Swelling at the incision site Call your doctor if you observe: Fever of 101 or Higher, Inability to urinate and Inability to have a bowel movement Suture Line Care: Avoid Pulling/Pushing and Avoid Pinching/Bending Change Dressing in: do not change dressing Cleanse incision/area with: Do not get Incision Wet and Keep Dressing Clean & Dry Follow Up Care Please Follow Up With: Shanel Parrish MD When: Call the office to be seen in the next 1 to 3 days Test Results: Test results from this visit will be discussed in further detail at your follow-up appointment, if applicable. Discharge Plan Admission Attending Provider: Shanel Parrish Primary Care Provider: Shanel Gloria NP Discharge Orders/Prescriptions Prescriptions: New oxycodone-acetaminophen [Percocet] 5-325 mg tablet 1 tab PO Q8H PRN (Reason: pain) 5 Days Qty: 14 RF: 0 cephalexin [cephalexin] 500 MG capsule 500 mg PO Q12 3 Days Qty: 6 RF: 0 Continued multivitamin Tablet 1 tab PO DAILY RF: 0 atorvastatin 40 mg Tablet 40 mg PO DAILY RF: 0 metoprolol tartrate 100 mg Tablet 100 mg PO BID RF: 0 melatonin 3 mg Tablet 5 mg PO QHS RF: 0 sennosides [Senokot] 8.6 mg Tablet 8.6 mg PO DAILY PRN (Reason: Constipation) RF: 0 iron 50 mg iron Tablet 65 tab PO DAILY RF: 0 ascorbic acid (vitamin C) [Vitamin C] 500 mg Capsule, Extended Release 500 mg PO DAILY RF: 0 Probiotic 3 billion cell Capsule 3,000 mmu cells PO DAILY RF: 0 Referrals / Follow Up: Shanel Gloria NP, NUCLEAR WASTE PROCESS OPERATOR-C [Primary Care Provider] - Disposition Disposition (needs filled in before D/C Order can be placed): Home, Self Care
--- NOTE | 2021-09-19 11:08 | OP.PCM_ITS ---
Problems Associated Problem List Diagnoses (1) Neurogenic bladder: (2) Urinary retention: Report of Operation Date of Procedure: 09/19/21 Pre-Operative Diagnosis: Neurogenic bladder, urinary retention Post-Operative Diagnosis: Same Surgery/Procedure Performed:: InterStim stage I Surgeon: Shanel Parrish Type of Anesthesia: MAC Description of Procedure: The patient is a 76-year-old female with urinary retention. She was evaluated in the office with cystoscopy and urodynamics which revealed neurogenic bladder. The patient now presents for an InterStim stage I trial. Informed consent has been obtained. The patient was taken to the operating room and placed in a prone position on the operating room table. Anesthesia monitored the head, neck, airway, IV access and vital signs throughout the case. Once anesthesia was appropriate ministered the patient was prepped and draped in usual sterile fashion. At this time the right S3 foramen was identified and visualized using fluoroscopic evaluation. The S3 foramen was intubated with a needle and stimulated to achieve good dixie and toe response. A skin incision was made at the needle site. A guidewire was passed through the empty needle and the needle was removed. The dilator was then passed without difficulty into the S3 foramen as visualized with fluoroscopy. The o bturator was removed and the lead was inserted. There was good response on lead sites 0 through 3 with toe and dixie. At this time the lead and the lead extension were tunneled into incision made for the pocket site. The lead extension was connected to the lead and secured using Prolene and a torque wrench. At this time the lead extension and lead were buried into the pocket site which was closed with 3-0 Vicryl followed by 4-0 subcuticular suturing and skin glue. The battery was then attached to the lead extension and everything was taped into position on the patient's back with opsite and cloth tape. Her atkinson catheter was removed and she was then awakened and taken to the recovery room in good condition. There were no complications during this procedure. Grafts/Implants Used: InterStim lead and lead extension Complications None Admit VTE Documentation VTE Present on Admission: No VTE Pharm Prophylaxis ordered?: No Reason prophylaxis not ordered:: Treatment Not Indicated
[2021-09-19] MEDS: Lactated Ringers 1,000 ML 15 ML IV (11:10)
--- NOTE | 2021-09-19 11:23 | RAD_ITS ---
STUDY: X-RAY - PELVIS REASON FOR EXAM: Female, 76 years old. INTERSTIM THERAPY 1 TECHNIQUE: One view of the pelvis was obtained. COMPARISON: None. FINDINGS: Intraoperative imaging provided for InterStim placement. RAD/Pelvis 1 or 2 Views IMPRESSION: Intraoperative imaging provided for InterStim placement. Electronically Signed: Bob Fenton MD at 11:53 EST ,
[2021-09-19] MEDS: Lidocaine 1% (20 ml mdv) 20 ML Vial (11:54)
[2021-09-19 12:22] VITALS: BP 150/68; BP 92/55; PULSE 61; RESP 16; TEMP 36.9; O2SAT 98
[2021-09-19 12:25] VITALS: BP 150/68; BP 96/58; PULSE 62; RESP 16; O2SAT 98
[2021-09-19 12:30] VITALS: BP 104/52; BP 150/68; PULSE 62; RESP 16; O2SAT 98
[2021-09-19 12:35] VITALS: BP 104/57; BP 150/68; PULSE 59; RESP 16; TEMP 36.8; O2SAT 100
[2021-09-19 13:12] VITALS: BP 150/68
== END 2021-09-19 23:59 | disposition home or self-care (01) ==
LOC: SDC 09:54 → AC 09:55
PROVIDERS: PCP Registered Nurse; Referring Provider Urology; Visit Provider Urology
PROC: (CPT 64581; principal; 2021-09-19 11:00)
DX: Z45.42 Encounter for adjustment and management of neurostimulator (principal); J44.9 Chronic obstructive pulmonary disease, unspecified; R33.9 Retention of urine, unspecified; N39.46 Mixed incontinence; N31.9 Neuromuscular dysfunction of bladder, unspecified; I10 Essential (primary) hypertension; E78.00 Pure hypercholesterolemia, unspecified; Z79.899 Other long term (current) drug therapy; Z87.891 Personal history of nicotine dependence
CPT/HCPCS: 64581; 00630; 72170; 76000; 87426; J7120

== ENCOUNTER 2021-10-17 11:07 | Day surgery (SDC) | payer MEDICARE, SELFPAY ==
--- NOTE | 2021-10-17 11:12 | PCM.OPRPT ---
Problems Associated Problem List Diagnoses (1) Neurogenic bladder: (2) Urinary retention: Report of Operation Date of Procedure: 10/17/21 Pre-Operative Diagnosis: neurogenic bladder, urinary retention Post-Operative Diagnosis: same Surgery/Procedure Performed:: Interstim Stage 2 Surgeon: Shanel Parrish Type of Anesthesia: MAC Estimated Blood Loss (mL): 5 cc Description of Procedure: The patient is a 76-year-old female who successfully passed a stage I InterStim trial for urinary retention. She now presents for implantation of her IPG. Informed consent was obtained. She reported in the preoperative area that she has had increasing urgency, frequency and leakage recently. A bladder scan PVR was approximately 400 cc. The unit was unable to be tested secondary to batteries. The patient was taken to the operating room and placed in a prone position in the operating room table. She was appropriately padded and secured to the table. The temporary battery pack batteries were changed and the unit have been turned off. When the unit was turned on, the patient reported sensation vaginally. There were no impedances identified. Fluoroscopic visualization proved that the lead was in good position in the pelvis. The patient was then prepped and draped in usual sterile fashion. The incision of the pocket site was infiltrated with lidocaine and then opened with a knife. The lead was identified with the lead extension and both were brought into the operative field. Using the torque wrench, the lead was removed from the lead extension which was then cut and removed from the operative field. The pocket site and no evidence of infection. It was enlarged using a knife and Bovie cautery. Hemostasis was adequately obtained. The lead was dried and inserted into the IPG and placed into the pocket site. It was tested and found to have no impedances. It was secured using 3-0 interrupted Vicryl followed by 4-0 subcuticular suturing and then Dermabond. The patient was then awakened and taken to the recovery room in good condition. There were no complications during this procedure. Grafts/Implants Used: Interstim battery Complications none Admit VTE Documentation VTE Present on Admission: Yes VTE Mechan Device Prophylaxis: SCD's VTE Pharm Prophylaxis ordered?: No Reason prophylaxis not ordered:: Treatment Not Indicated
--- NOTE | 2021-10-17 11:14 | PCM.DC ---
Discharge Instructions Follow Up Care Test Results: Test results from this visit will be discussed in further detail at your follow-up appointment, if applicable. Discharge Plan Admission Attending Provider: Shanel Parrish Primary Care Provider: Dakota Godinez Discharge Orders/Prescriptions Prescriptions: New cephalexin [cephalexin] 500 MG capsule 500 mg PO Q12 3 Days Qty: 6 RF: 0 oxycodone-acetaminophen [Percocet] 5-325 mg tablet 1 tab PO Q8H PRN (Reason: pain) 3 Days Qty: 10 RF: 0 Continued multivitamin Tablet 1 tab PO DAILY RF: 0 atorvastatin 40 mg Tablet 40 mg PO DAILY RF: 0 metoprolol tartrate 100 mg Tablet 100 mg PO BID RF: 0 melatonin 3 mg Tablet 5 mg PO QHS RF: 0 sennosides [Senokot] 8.6 mg Tablet 8.6 mg PO DAILY PRN (Reason: Constipation) RF: 0 iron 50 mg iron Tablet 65 tab PO DAILY RF: 0 ascorbic acid (vitamin C) [Vitamin C] 500 mg Capsule, Extended Release 500 mg PO DAILY RF: 0 Probiotic 3 billion cell Capsule 3,000 mmu cells PO DAILY RF: 0 Referrals / Follow Up: Dakota Godinez MD [Primary Care Provider] - Disposition Disposition (needs filled in before D/C Order can be placed): Home, Self Care
[2021-10-17 11:34] VITALS: BP 150/71; PULSE 64; RESP 18; TEMP 37.3; O2SAT 99; BMI 29.1
[2021-10-17] MEDS: Lactated Ringers 1,000 ML 15 ML IV (11:49)
[2021-10-17] MEDS: Vancomycin IV 1,000 MG/200 ML BAG 200 MG IV (12:48)
[2021-10-17] MEDS: Lidocaine 1% /Epi 1:100 (50ml) 50 ML VIAL (13:00)
[2021-10-17 13:19] VITALS: BP 103/55; BP 150/71; PULSE 61; RESP 16; TEMP 37.3; O2SAT 98
[2021-10-17 13:25] VITALS: BP 110/54; BP 150/71; PULSE 59; RESP 16; O2SAT 97
[2021-10-17 13:30] VITALS: BP 110/51; BP 150/71; PULSE 60; RESP 16; O2SAT 100
[2021-10-17 13:35] VITALS: BP 116/52; BP 150/71; PULSE 59; RESP 16; TEMP 36.8; O2SAT 98
[2021-10-17 14:29] VITALS: BP 116/40; BP 150/71; PULSE 61; RESP 16; TEMP 37; O2SAT 100
== END 2021-10-17 23:59 | disposition home or self-care (01) ==
LOC: SDC 11:09 → AC 11:13
PROVIDERS: PCP Family Medicine; Visit Provider Urology
PROC: (CPT 64590; principal; 2021-10-17 12:10)
DX: Z45.42 Encounter for adjustment and management of neurostimulator (principal); J44.9 Chronic obstructive pulmonary disease, unspecified; N31.9 Neuromuscular dysfunction of bladder, unspecified; R33.9 Retention of urine, unspecified; I10 Essential (primary) hypertension; D64.9 Anemia, unspecified; R01.1 Cardiac murmur, unspecified; N39.46 Mixed incontinence; Z87.891 Personal history of nicotine dependence; Z79.899 Other long term (current) drug therapy; E78.00 Pure hypercholesterolemia, unspecified
CPT/HCPCS: 64590; 76000; 87426; J7120; C1767